=== PATIENT | female | born 1975 | race Two or more races ===

== ENCOUNTER 2024-08-26 15:53 | Inpatient (IN) | payer MEDICAID, OTHER ==
[~2024-08-26] VITALS: Ht 165.1 cm; Wt 68.1 kg
--- NOTE | 2024-08-26 16:10 | ED.PDOC ---
HPI (NEURO) HPI Comments HPI: Poor Historian. 49-year-old female brought in by EMS from PCP's office after a witnessed seizure episode by the physician. Patient had a seizure on the of this month and then also on the of this month and then today as well. She never sought any medical attention for all these recent episodes. She has a history of seizure disorder on phenytoin and phenobarbital. She states compliance with her medications. Her neurologist Dr. Bra. Patient took her last Dilantin dose last night as scheduled. Per EMS, patient had two seizure episodes in route in the ambulance that lasted no more than 30 seconds. Patient was given Versed by EMS prior to arrival. On arrival patient is awake answers questions knows her name follows commands and able to give me all the above details. No recent fall or trauma. Past Medcial History: Seizure disorder Past Surgical History: Denies any REVIEW OF SYSTEMS: CONSTITUTIONAL: Denies acute: fever, diaphoresis, chills, HEAD: Denies acute: headache, photophobia Eyes: Denies acute: Double vision, vision loss, eye pain, eye discharge. EARS: Denies acute: tinnitus, hearing loss, ear discharge, ear pain, THROAT: Denies acute: sore throat, swelling, difficulty swallowing , pain with swallowing, change in voice. NECK: Denies acute: neck pain, neck swelling, stiff neck. HEART: Denies acute : chest pain, palpitations, LUNGS: Denies acute: SOB, wheezing, cough, hemoptysis ABDOMEN: Denies acute: abdominal pain, Nausea, Vomiting, diarrhea, melena , hematemesis, hematochezia SKIN: Denies acute: rash, redness, lesions, itchiness. EXTREMITIES: Denies acute: calf pain, numbness, tingling, weakness, denies pain in extremity. Denies acute: Low back pain. Neuro: Denies acute: focal neurological deficit, motor or sensory focal neurological deficit, , confusion, dizziness, change in mental status, loss of bowel or bladder function, cauda equina like symptoms. : Denies acute: dysuria, hematuria, flank pain, increase in urinary frequency. PSYCH: Denies acute: hallucination, suicidal ideation, homicidal ideation. FEMALE: Denies acute: abnormal vaginal bleeding, foul odor, unusual discharge. PHYSICAL EXAM: General: no acute distress, awake and alert. Head: normocephalic, atraumatic. Neck: supple, trachea is midline, no swelling. Throat: Normal phonation. No obstruction, no erythema, no swelling, no tongue contusion or bleeding or injury. Eyes:, no erythema, no purulent discharge, no proptosis, no icterus. Heart: regular rate, regular rhythm, no significant murmur appreciated. Lungs: no apparent respiratory distress, Able to speak in full sentences. No wheezing, no rhonchi, no crackles. No stridors Clear to auscultation bilaterally. Abdomen: non tender to palpation, non distended, soft, no guarding, no rebound, + bowel sounds. Neuro: Awake, Alert, oriented to name, self, situation, follows commands GCS=15. Speech is normal. Skin: no petechia, no purpura, no cyanosis, non-pale, not jaundice. Lower extremities: --no - Pitting edema no deformity, no focal swelling, no calf TTP. Makes eye contact. moves all four extremities. Face: no apparent facial droop. No CVA tenderness to percussion bilaterally. Ambulating in the ED independently. Ears: Normal appearing TM b/l, Stroke: finger to nose cerebellar testing is intact. No pronator drift. Symmetrical student counselor muscle strength b/l PERRLA, EOM-I Chief Complaint: Seizure Time Seen by MD: 16:00 Reviewed Notes: Nurses Notes, Traffic Observer Notes, Allergies Information Source: Patient, Emergency Med Personnel Was a procedure done? Was a procedure done?: No Differential Diagnosis (SZ) Seizure: Other (SEIZUREDDX include not limited to CVA, cerebellar ischemia/infarct, carotid stenosis, vertebral/carotid artery dissection,, vertebrobasillary insufficiency, Intracranial mass/infection/bleed, encephalopathy, elctrolyte abnormality, thyroid disease, multiple sclerosis, hypoglycemia, drug toxicity, cardiac arrhythmia, sub-theraputic anti-convulsion medications, known seizure disorder, pseudo-seizure.) X-Ray, Labs, Meds, VS Vital Signs Date Time Temp Pulse Resp B/P (MAP) Pulse Ox O2 Delivery O2 Flow Rate FiO2 08/26/24 21:30 85 15 103/77 (86) 98 08/26/24 20:00 86 08/26/24 19:30 98.3 86 15 109/68 (82) 96 98.3 08/26/24 19:30 86 15 96 Room Air* 0 21 08/26/24 19:00 85 15 Room Air* 0 21 08/26/24 18:32 107/69 08/26/24 17:52 81 14 104/68 (80) 93 08/26/24 17:50 82 08/26/24 16:04 98.1 82 20 137/87 (104) 100 Lab Test 08/26/24 19:43 08/26/24 19:27 08/26/24 17:58 08/26/24 16:28 Range/Units Troponin I High Sensitivity < 3 L < 3 L < 3 L </=34 ng/L Urine Color Colorless Yellow Urine Clarity Turbid H Clear Urine pH 6.5 5.0-9.0 Urine Specific [place] 1.007 1.001-1.035 Urine Protein Negative Negative Urine Ketones Negative Negative Urine Blood Negative Negative /uL Urine Nitrite Negative Negative Urine Bilirubin Negative Negative Urine Urobilinogen Normal Negative mg/dL Urine Leukocyte Esterase 3+ Negative /uL Urine RBC 1 0 - 4 /hpf Urine Microscopic WBC 16 H 0-5 /HPF Urine Squamous Epithelial Cells Mod <5 /hpf Urine Bacteria Many H None Seen /hpf Urine Mucus Few None Seen Urine Glucose Normal Normal mg/dL Urine Opiates Screen Neg NEGATIVE Urine Fentanyl Screen Neg NEGATIVE Urine Barbiturates Screen Pos NEGATIVE Urine Phencyclidine Screen Neg NEGATIVE Urine Amphetamines Screen Neg NEGATIVE Urine Benzodiazepines Screen Pos NEGATIVE Urine Cocaine Screen Neg NEGATIVE Urine Cannabinoids Screen Neg NEGATIVE B-Type Natriuretic Peptide 10.75 0-100 pg/mL White Blood Count 5.0 4.4-10.8 10^3/uL Red Blood Count 4.44 4.0-5.20 10^6/uL Hemoglobin 15.0 12.2-16.2 g/dL Hematocrit 43.5 36.0-46.0 % Mean Corpuscular Volume 98.0 80.0-100.0 fL Mean Corpuscular Hemoglobin 33.7 H 28.0-32.0 pg Mean Corpuscular Hemoglobin Concent 34.4 32.0-36.0 g/dL Red Cell Distribution Width 12.4 11.8-14.3 % Platelet Count 216 140-450 10^3/uL Mean Platelet Volume 6.9 6.9-10.8 fL Neutrophils (%) (Auto) 57.9 37.0-80.0 % Lymphocytes (%) (Auto) 32.7 10.0-50.0 % Monocytes (%) (Auto) 6.4 0.0-12.0 % Eosinophils (%) (Auto) 2.0 0.0-7.0 % Basophils (%) (Auto) 1.0 0.0-2.0 % Neutrophils # (Auto) 2.9 1.6-8.6 10 ^3/uL Lymphocytes # (Auto) 1.6 0.4-5.4 10 ^3/uL Monocytes # (Auto) 0.3 0-1.3 10 ^3/uL Eosinophils # (Auto) 0.1 0-0.8 10 ^3/uL Basophils # (Auto) 0 0-0.2 10 ^3/uL Nucleated Red Blood Cells 0.1 % Sodium Level 140 136-145 mmol/L Potassium Level 4.3 3.5-5.1 mmol/L Chloride Level 107 98-107 mmol/L Carbon Dioxide Level 26 20-31 mmol/L Anion Gap 7 5-15 Blood Urea Nitrogen 7 L 9-23 mg/dL Creatinine 0.51 L 0.550-1.02 mg/dL Glomerular Filtration Rate Calc 114 >90 mL/min BUN/Creatinine Ratio 13.7 10.0-20.0 Serum Glucose 77 74-106 mg/dL Lactic Acid Level 1.2 0.4-2.0 mmol/L Calcium Level 9.7 8.7-10.4 mg/dL Magnesium Level 2.0 1.6-2.6 mg/dL Total Bilirubin 0.4 0.2-1.0 mg/dL Aspartate Amino Transferase (AST) 23 13-40 U/L Alanine Aminotransferase (ALT) 28 7-40 U/L Alkaline Phosphatase 93 46-116 U/L Creatine Kinase 42 34-145 U/L Total Protein 7.4 5.7-8.2 g/dL Albumin 4.6 3.2-4.8 g/dL Phenobarbital Level 23.2 15.0-40.0 ug/mL Test 08/26/24 16:00 Range/Units Phenytoin (Dilantin) Level 22.4 *H 10-20 ug/mL Current Medications Medications (Trade) Dose Ordered Sig/Anne-Marie Route Start Time Stop Time Status Last Admin Furosemide (Lasix Injection) 20 mg ONCE ONCE IV 08/26/24 18:00 08/26/24 18:01 DC 08/26/24 18:32 PATIENT: LISA WAGNERACCT: [id number]: [id number] : 1975 LOC: ER ROOM / BED: / AGE / SEX: 49 / F ADM STATUS: REG ER SERVICE 1600 ORDERING PHYSICIAN: ROSS PRADO DO PROCEDURE(s): CXRP - CHEST PORTABLE REASON: ORDER NUMBER(s): [id number], ACCESSION NUMBER(s): [id number] EXAM: XR Chest, 1 View CLINICAL INDICATION: [place] TECHNIQUE: Frontal view of the chest. COMPARISON: None FINDINGS: LUNGS AND PLEURAL SPACES: Pulmonary venous congestion. No consolidation. No pneumothorax. HEART: Unremarkable. No cardiomegaly. MEDIASTINUM: Unremarkable. Normal mediastinal contour. BONES/JOINTS: Unremarkable. No acute fracture. OTHER FINDINGS: . IMPRESSION: Pulmonary venous congestion. ATED BY: KEVYN MCGEE MD DICTATED DATE/TIME: 08/26/241621 SIGNED BY: KEVYN MCGEE MD SIGNED DATE/TIME: 08/26/241621 PATIENT: LISA WAGNER ACCT: [id number] UNIT: [id number] : 1975 LOC: ER ROOM / BED: / AGE / SEX: 49 / F ADM STATUS: REG ER SERVICE 1600 ORDERING PHYSICIAN: ROSS PRADO DO PROCEDURE(s): HWOCT - HEAD WITHOUT CONTRAST REASON: ORDER NUMBER(s): [id number], ACCESSION NUMBER(s): [id number] EXAM: CT HEAD WITHOUT CONTRAST HISTORY: COMPARISON: None TECHNIQUE: Axial images of the head were obtained and reformatted in coronal and sagittal planes. All CT scans at this medical facility are performed using dose modulation techniques as appropriate to a performed exam including the following: Automated exposure control was utilized; adjustment of the MA and/or KV according to patient size; and use of iterative reconstruction technique. CT Dose: CTDI volume is 60 mGy. Dose-length product is 1073 mGy*cm FINDINGS: There is no evidence of acute intracranial hemorrhage, mass, mass effect midline shift. There is no hydrocephalus or extra-axial fluid collection. Lora-white matter differentiation is maintained. The visualized paranasal sinuses and mastoid air cells are clear. The calvarium is intact. IMPRESSION: 1. No acute intracranial process. HS:Y ATED BY: ISAIAS BAR MD DICTATED DATE/TIME: 08/26/241621 SIGNED BY: ISAIAS BAR MD SIGNED DATE/TIME: 08/26/24 162 Time of 1ST Reevaluation: 02:06 Reevaluation 1ST: Improved Patient Education/Counseling: Diagnosis, Treatment Family Education/Counseling: Other Comments Patient presented with the above HPI.---seizure---workup was initiated. patient was found with the above mentioned diagnosis. the following medications were ordered: please refer to order lists of meds and tests obtained by myself Dr. Prado. Patient ED course and VS have been stabilized. Patient has been reassessed in the ED and remained in a stable condition. Pertinent incidental findings were discussed with the patient and/or family. Patient/family voices understanding and is agreeable with plan. Patient has been observed in the ED adequate length of time to insure improvement/stability. Escalation of care considered: Consideration of escalation to observation or admission Patient was ADMITTED to the medicine team for further evaluation and treatment of their presentation. All the reports of any imaging studies that were ordered by myself were reviewed by myself. Departure 1 Departure Time of Disposition: 17:56 Impression: Primary Impression: Seizure Additional Impressions: Subtherapeutic serum dilantin level UTI (urinary tract infection) Disposition: ADMITTED INPATIENT Admit to: Tele Condition: Guarded Discharged With: Self Critical Care Note Critical Care Time?: Yes (35 min-critical care time only) I personally scribed for ROSS PRADO DO ([email or web address]) on 08/26/24 at 18:29. Electronically submitted by Dangelo Wells ([email or web address]). ROSS PRADO DO Aug 26, 2024 16:10
--- NOTE | 2024-08-26 16:24 | DVH ---
EXAM: XR Chest, 1 View CLINICAL INDICATION: sz TECHNIQUE: Frontal view of the chest. COMPARISON: None FINDINGS: LUNGS AND PLEURAL SPACES: Pulmonary venous congestion. No consolidation. No pneumothorax. HEART: Unremarkable. No cardiomegaly. MEDIASTINUM: Unremarkable. Normal mediastinal contour. BONES/JOINTS: Unremarkable. No acute fracture. OTHER FINDINGS: . IMPRESSION: Pulmonary venous congestion.
--- NOTE | 2024-08-26 16:24 | DVH ---
EXAM: CT HEAD WITHOUT CONTRAST HISTORY: sz COMPARISON: None TECHNIQUE: Axial images of the head were obtained and reformatted in coronal and sagittal planes. All CT scans at this medical facility are performed using dose modulation techniques as appropriate t o a performed exam including the following: Automated exposure control was utilized; adjustment of th e MA and/or KV according to patient size; and use of iterative reconstruction technique. CT Dose: CTDI volume is 60 mGy. Dose-length product is 1073 mGy*cm FINDINGS: There is no evidence of acute intracranial hemorrhage, mass, mass effect midline shift. There is no h ydrocephalus or extra-axial fluid collection. Lora-white matter differentiation is maintained. The visualized paranasal sinuses and mastoid air cells are clear. The calvarium is intact. IMPRESSION: 1. No acute intracranial process. HS:Y
[2024-08-26 17:01] LABS: Basophils # (auto) 0 10 ^3/uL (0-0.2); Eosinophils # (auto) 0.1 10 ^3/uL (0-0.8); Hematocrit 43.5 % (36.0-46.0); Lymphocytes # (auto) 1.6 10 ^3/uL (0.4-5.4); Lymphocytes % (auto) 32.7 % (10.0-50.0); Mean Corpuscular Hemoglobin 33.7 pg (28.0-32.0); Mean Corpuscular Hgb Conc. 34.4 g/dL (32.0-36.0); Monocytes # (auto) 0.3 10 ^3/uL (0-1.3); Monocytes % (auto) 6.4 % (0.0-12.0); Neutrophils # (auto) 2.9 10 ^3/uL (1.6-8.6); Neutrophils % (auto) 57.9 % (37.0-80.0); Nucleated Red Blood Cells % 0.1 %; Platelet Count (auto) 216 10^3/uL (140-450); Red Blood Cells 4.44 10^6/uL (4.0-5.20); Red Cell Distribution Width 12.4 % (11.8-14.3)
[2024-08-26 17:18] LABS: Alanine Aminotransferase 28 U/L (7-40); Albumin 4.6 g/dL (3.2-4.8); Alkaline Phosphatase 93 U/L (46-116); Anion Gap 7 (5-15); Aspartate Aminotransferase 23 U/L (13-40); BUN/Creatinine Ratio 13.7 (10.0-20.0); Calcium 9.7 mg/dL (8.7-10.4); Carbon Dioxide 26 mmol/L (20-31); Chloride 107 mmol/L (98-107); Creatine Kinase IFCC 42 U/L (34-145); Glucose 77 mg/dL (74-106); Potassium 4.3 mmol/L (3.5-5.1); Sodium 140 mmol/L (136-145)
[2024-08-26 17:19] LABS: Bilirubin, Total 0.4 mg/dL (0.2-1.0); Total Protein 7.4 g/dL (5.7-8.2)
[2024-08-26 17:23] LABS: Blood Urea Nitrogen 7 mg/dL (9-23)
[2024-08-26] MEDS: FUROSEMIDE 20 MG/2 ML VIAL IV ONE (18:32)
[2024-08-26 19:00] VITALS: PULSE 85; RESP 15
[2024-08-26 19:30] VITALS: PULSE 86; RESP 15; O2SAT 96
[2024-08-26 19:56] LABS: Urine Bacteria MANY /hpf (None Seen); Urine Blood Negative /uL (Negative); Urine Clarity Turbid (Clear); Urine Color Colorless (Yellow); Urine Mucus FEW (None Seen); Urine Protein, UAD Negative (Negative); Urine Specific Gravity 1.007 (1.001-1.035); Urine Squamous Epithelial Cell MOD /hpf (<5); Urine Urobilinogen Normal (Negative); Urine WBC 16 /HPF (0-5); Urine pH 6.5 (5.0-9.0)
[2024-08-26] MEDS ORDERED: LORazepam 2MG/ML-1ML VIAL IV PRN (22:45)
--- NOTE | 2024-08-26 22:45 | DVHHPRES ---
History of Present Illness Resident Creating Document: FABI GOMEZ RESIDENT History of Present Illness Patient is a 49-year-old female with past medical history of a seizure disorder diagnosed in childhood, who was sent from her PCP's office due to having multiple seizures. According to the patient, she went to her PCP's office earlier in the day when she had a seizure at the doctor's office, who subsequently called the ambulance. On route in the ambulance, patient had another 2 seizures. Patient notes that she has had 2 seizures earlier this month as well. At the time of my assessment, patient was A&O x4 with some headache. Patient notes being compliant with her medication phenobarbital and phenytoin. Per patient, she completed EEG in May 2024 which according to her was largely unremarkable. Patient notes that for the past 3-4 days she has been having increasing insomnia and difficulty falling asleep at night. On review of systems patient is complaining of chills and urinary frequency. UA shows 3+ leukocyte esterase and many bacteria. Urine culture was ordered and pool walters was started on IV ceftriaxone. Past Medical History Seizure disorder Past Surgical History Lumpectomy in 2010 Smoke: No ALCOHOL: none Drugs: None Lives: with Family Review of Systems Constitutional: Yes: Chills; No: Fever, Sweats, Weakness, Malaise, Other Eyes: No: Pain, Vision change, Conjunctivae inflammation, Eyelid inflammation, Other, Redness ENT: No: Ear pain, Ear discharge, Nose pain, Nose discharge, Nose congestion, Mouth pain, Mouth swelling, Throat pain, Throat swelling, Other Respiratory: No: Cough, Dry, Shortness of breath, SOB with excertion, Wheezing, Hemoptysis, Pleuritic Pain, Sputum, Wheezing, Other Cardiovascular: No: Chest Pain, Palpitations, Orthopnea, Paroxysmal Noc. Dyspnea, Edema, Lt Headedness, Other Gastrointestinal: No: Nausea, Vomiting, Abdominal Pain, Diarrhea, Constipation, Melena, Hematochezia, Other Genitourinary: No Dysuria; Frequency; No Incontinence, No Hematuria, No Retention, No Other Musculoskeletal: No: other, neck pain, shoulder pain, arm pain, back pain, hand pain, leg pain, foot pain Skin: No: Rash, Lesions, Jaundice, Bruising, Other Neurological: No: Weakness, Numbness, Incoordination, Change in speech, Confusion, Seizures, Other Allergies: Coded Allergies: NO KNOWN ALLERGIES (Unverified , 08/26/24) Medications Current Medications Medications Dose Ordered Sig/Anne-Marie Route Start Time Stop Time Status Last Admin Dose Admin Lorazepam 1 mg Q5MINP PRN IV 08/26/24 22:45 Phenobarbital 97.2 mg DAILY PO 08/27/24 10:00 Ceftriaxone Sodium 50 ml @ 100 mls/hr DAILY@09 IV 08/27/24 09:00 Exam Vital Signs Vital Signs Date Time Temp Pulse Resp B/P (MAP) Pulse Ox O2 Delivery O2 Flow Rate FiO2 08/26/24 21:30 85 15 103/77 (86) 98 08/26/24 19:30 98.3 98.3 08/26/24 19:30 Room Air* 0 21 General Appearance: Alert, Oriented X3, Cooperative, No acute distress HEENT: Atraumatic, PERRLA, EOMI, Mucous membr. moist/pink Respiratory: Clear to auscultation, Normal air movement Cardiovascular: Regular rate, Normal S1, Normal S2 Abdominal: Normal bowel sounds, Soft, No tenderness Extremities: No edema, Normal pulses Skin: No rashes, No significant lesion Neuro: Normal speech, Sensation intact Psych/Mental Status: Mental status NL, Mood NL Labs/Xrays Labs Test 08/26/24 19:43 08/26/24 19:27 08/26/24 17:58 08/26/24 16:28 Range/Units Troponin I High Sensitivity < 3 L </=34 ng/L Urine Color Colorless Yellow Urine Clarity Turbid H Clear Urine pH 6.5 5.0-9.0 Urine Specific [place] 1.007 1.001-1.035 Urine Protein Negative Negative Urine Ketones Negative Negative Urine Blood Negative Negative /uL Urine Nitrite Negative Negative Urine Bilirubin Negative Negative Urine Urobilinogen Normal Negative mg/dL Urine Leukocyte Esterase 3+ Negative /uL Urine RBC 1 0 - 4 /hpf Urine Microscopic WBC 16 H 0-5 /HPF Urine Squamous Epithelial Cells Mod <5 /hpf Urine Bacteria Many H None Seen /hpf Urine Mucus Few None Seen Urine Glucose Normal Normal mg/dL B-Type Natriuretic Peptide 10.75 0-100 pg/mL White Blood Count 5.0 4.4-10.8 10^3/uL Red Blood Count 4.44 4.0-5.20 10^6/uL Hemoglobin 15.0 12.2-16.2 g/dL Hematocrit 43.5 36.0-46.0 % Mean Corpuscular Volume 98.0 80.0-100.0 fL Mean Corpuscular Hemoglobin 33.7 H 28.0-32.0 pg Mean Corpuscular Hemoglobin Concent 34.4 32.0-36.0 g/dL Red Cell Distribution Width 12.4 11.8-14.3 % Platelet Count 216 140-450 10^3/uL Mean Platelet Volume 6.9 6.9-10.8 fL Neutrophils (%) (Auto) 57.9 37.0-80.0 % Lymphocytes (%) (Auto) 32.7 10.0-50.0 % Monocytes (%) (Auto) 6.4 0.0-12.0 % Eosinophils (%) (Auto) 2.0 0.0-7.0 % Basophils (%) (Auto) 1.0 0.0-2.0 % Neutrophils # (Auto) 2.9 1.6-8.6 10 ^3/uL Lymphocytes # (Auto) 1.6 0.4-5.4 10 ^3/uL Monocytes # (Auto) 0.3 0-1.3 10 ^3/uL Eosinophils # (Auto) 0.1 0-0.8 10 ^3/uL Basophils # (Auto) 0 0-0.2 10 ^3/uL Nucleated Red Blood Cells 0.1 % Sodium Level 140 136-145 mmol/L Potassium Level 4.3 3.5-5.1 mmol/L Chloride Level 107 98-107 mmol/L Carbon Dioxide Level 26 20-31 mmol/L Anion Gap 7 5-15 Blood Urea Nitrogen 7 L 9-23 mg/dL Creatinine 0.51 L 0.550-1.02 mg/dL Glomerular Filtration Rate Calc 114 >90 mL/min BUN/Creatinine Ratio 13.7 10.0-20.0 Serum Glucose 77 74-106 mg/dL Lactic Acid Level 1.2 0.4-2.0 mmol/L Calcium Level 9.7 8.7-10.4 mg/dL Magnesium Level 2.0 1.6-2.6 mg/dL Total Bilirubin 0.4 0.2-1.0 mg/dL Aspartate Amino Transferase (AST) 23 13-40 U/L Alanine Aminotransferase (ALT) 28 7-40 U/L Alkaline Phosphatase 93 46-116 U/L Creatine Kinase 42 34-145 U/L Total Protein 7.4 5.7-8.2 g/dL Albumin 4.6 3.2-4.8 g/dL Phenobarbital Level 23.2 15.0-40.0 ug/mL Test 08/26/24 16:00 Range/Units Phenytoin (Dilantin) Level 22.4 *H 10-20 ug/mL Assessment/Plan Assessment/Plan Breakthrough seizure possibly due to infection? Possible aspiration pneumonitis - CXR: Pulmonary venous congestion - head CT: No acute intracranial process - resumed home medication phenytoin 100 mg b.i.d. - resumed home medication phenobarbital 97.2 mg p.o. daily - IV Ativan Q 5 minutes as needed for seizures - IV Keppra 1000 mg once - neurology consulted Acute complicated UTI - IV ceftriaxone - ordered urine culture Goals of care: Full code, discussed for >16 minutes on 08/26/24 Plan discussed with patient Plan discussed with Dr. Peralta Plan discussed with: Patient, Other (RN) My Orders Orders - FABI GOMEZ RESIDENT Procedure Category Date Status Time Admit ADMIT 08/26/24 Transmitted 21:52 Code Status CODE 08/26/24 Transmitted 21:52 Vital Signs [facility] 08/26/24 In Process 21:52 Review Orders With [facility] 08/26/24 In Process Adm. 21:52 Notify Md Of Changes [facility] 08/26/24 In Process From [facility] 21:52 Advance Directive [facility] 08/26/24 In Process 21:52 Patient Condition ORDERS 08/26/24 Transmitted 21:52 Allergies [facility] 08/26/24 In Process 21:52 Notify Md Of Changes [facility] 08/26/24 In Process From Base 21:52 Seizure Precautions ED NURSING 08/26/24 Transmitted Strict Aspiration [facility] 08/26/24 In Process Precautions 21:52 Covid19 Antigen [facility] 08/26/24 Logged Rapid Influenza A&B LAB 08/26/24 Logged 22:36 Urine Bacterial NATALIA 08/26/24 Logged Culture 22:36 * Neurology Consult CONS 08/26/24 Transmitted 22:36 Drug Screen LAB 08/26/24 Logged 22:36 Lorazepam 2mg/Ml Inj PHA 08/26/24 In Process (Ativan Inj) 22:45 Phenobarbital Tablet PHA 08/27/24 In Process 10:00 Ceftriaxone 1gm/50ml PHA 08/27/24 In Process D5w (Rocephin) 09:00 Ceftriaxone 1gm/50ml PHA 08/26/24 In Process D5w (Rocephin) 22:45 Regular Diet DIET 08/27/24 Transmitted Breakfast Date of Service: Aug 26, 2024 Billing Provider: DARRYL LAUREN MD Common Visit Codes: 22656-[id number] INP/OBS CARE (HIGH) FABI GOMEZ RESIDENT Aug 26, 2024 22:45 DARRYL LAUREN MD Sep 02, 2024 15:56
[2024-08-26] MEDS: cefTRIAXone 1GM/50ML D5W 50 ML IV ONE (23:13)
[2024-08-26 23:24] LABS: Barbiturate Scree,Urine Pos (NEGATIVE)
[2024-08-26 23:27] LABS: Amphetamine Screen, Urine Neg (NEGATIVE); Benzodiazephine Screen, Urine Pos (NEGATIVE); Cannabinoid Screen, Urine Neg (NEGATIVE); Cocaine Screen, Urine Neg (NEGATIVE); Opiate Scree,Urine Neg (NEGATIVE); Phencyclidine Screen, Urine Neg (NEGATIVE)
[2024-08-27] MEDS: levETIRAcetam 1000 mg/100ml 100 ML IV ONE (00:27)
[2024-08-27] MEDS: IBUPROFEN 400 MG TAB PO PRN (01:40)
[2024-08-27 03:05] LABS: COVID19 ANTIGEN SOFIA FIA NEGATIVE (NEGATIVE); Rapid Influenza A Negative (Negative); Rapid Influenza B Negative (Negative)
[2024-08-27 05:19] LABS: Basophils # (auto) 0.1 10 ^3/uL (0-0.2); Basophils % (auto) 1.1 % (0.0-2.0); Eosinophils # (auto) 0.2 10 ^3/uL (0-0.8); Eosinophils % (auto) 3.2 % (0.0-7.0); Hematocrit 42.3 % (36.0-46.0); Hemoglobin 14.3 g/dL (12.2-16.2); Lymphocytes # (auto) 2.5 10 ^3/uL (0.4-5.4); Lymphocytes % (auto) 37.2 % (10.0-50.0); Mean Corpuscular Hemoglobin 33.6 pg (28.0-32.0); Mean Corpuscular Hgb Conc. 33.9 g/dL (32.0-36.0); Mean Corpuscular Volume 99.1 fL (80.0-100.0); Monocytes # (auto) 0.6 10 ^3/uL (0-1.3); Monocytes % (auto) 9.3 % (0.0-12.0); Neutrophils # (auto) 3.3 10 ^3/uL (1.6-8.6); Neutrophils % (auto) 49.2 % (37.0-80.0); Nucleated Red Blood Cells % 0.1 %; Platelet Count (auto) 203 10^3/uL (140-450); Red Blood Cells 4.27 10^6/uL (4.0-5.20); Red Cell Distribution Width 12.6 % (11.8-14.3); White Blood Cell 6.7 10^3/uL (4.4-10.8)
[2024-08-27 05:27] LABS: Potassium 3.6 mmol/L (3.5-5.1); Sodium 140 mmol/L (136-145)
[2024-08-27 05:28] LABS: Anion Gap 8 (5-15); Calcium 9.5 mg/dL (8.7-10.4); Carbon Dioxide 24 mmol/L (20-31)
[2024-08-27 05:33] LABS: BUN/Creatinine Ratio 15.9 (10.0-20.0); Blood Urea Nitrogen 10 mg/dL (9-23); Glucose 83 mg/dL (74-106)
[2024-08-27 05:36] LABS: Chloride 108 mmol/L (98-107)
[2024-08-27] MEDS: cefTRIAXone 1GM/50ML D5W 50 ML IV SCH (09:00)
--- NOTE | 2024-08-27 09:13 | DVHINCON2 ---
Date of service: Aug 27, [address] Pittman Reason for Consultation Breakthrough seizure History of Present Illness Ms. Donovan is a 49 years old right-handed female with a history of seizure disorder, the patient was brought to the [facility] ER on 08/26/2024 with a chief company of seizure activity. At this time, she was alert, fully oriented, she provided the following history She does not remember, but she was told to have three seizures yesterday, one in her doctor office, two in the ambulance, she remembers waking up between the seizures She has a seizure disorder since age of [age], with unknown etiology, she was company amnesia about all her seizures, but she was said to have shaking all over body, loss of consciousness, and she has had biting during the seizure attacks. She sees Dr. Bar, a local neurologist, she was on phenytoin 300 mg HS, phenobarbital 100 mg daily, but she keeps have seizure, about three days monthly. She was remember using Keppra previously, but not other seizure medications She remembers seeing a specialist for her seizure in the [facility], but she does not remember the details She reports a good compliance to her treatment She does not drive Dilantin, 08/26/2024: 22.4 Phenobarbital, 08/26/2024: 23.2 UDS, 08/26/2024: Benzodiazepine UDS, 08/26/2024: WBC: 15, urine leukocyte esterase: 3+ CBC, 08/27/2024: Unremarkable CMP company : Unremarkable CT head, 08/26/2024: No acute intracranial process. Past Medical History Seizure disorder Past Surgical History Lumpectomy Family History No major medical problem Social History She denies a history of alcohol smoke, drug/alcohol abuse Allergies: Coded Allergies: NO KNOWN ALLERGIES (Unverified , 08/26/24) Current Medications Current Medications Medications (Trade) Dose Ordered Sig/Anne-Marie Route PRN Reason Start Time Stop Time Status Last Admin Lorazepam (Ativan Inj) 1 mg Q5MINP PRN IV SEIZURES 08/26/24 22:45 Phenobarbital 97.2 mg DAILY PO 08/27/24 10:00 Ceftriaxone Sodium 50 ml @ 100 mls/hr DAILY@09 IV 08/27/24 09:00 Phenytoin Sodium (Dilantin Capsule) 100 mg Q12HR PO 08/27/24 10:00 Sertraline HCl (Zoloft) 25 mg DAILY PO 08/27/24 10:00 Ibuprofen (Motrin Tablet) 500 mg STAT PRN PO MILD PAIN (1-3 PAIN SCALE) 08/27/24 01:15 08/27/24 01:40 Review of Systems As above, the other systems are negative Vital Signs Vital Signs Date Time Temp Pulse Resp B/P (MAP) Pulse Ox O2 Delivery O2 Flow Rate FiO2 08/27/24 08:00 94 08/27/24 06:01 15 92/61 (71) 94 08/27/24 02:40 98.3 08/26/24 19:30 Room Air* 0 21 Physical Exam GENERAL EXAM: General: the patient is well developed and nourished. No acute distress. HEENT: Normocephalic, neck is supple, no carotid bruits. No mass. RESPIRATORY: Normal respiratory effort with symmetrical lung expansion. Lungs clear to auscultation. CARDIOVASCULAR: Regular rate and rhythm with no murmurs. S1, S2. ABDOMEN: Soft, nontender, normal bowel sound NEUROLOGICAL: MENTAL STATUS: Awake and alert. Oriented to person, place, time and general circumstances. Able to give personal history SPEECH, LANGUAGE, HIGHER CORTICAL FUNCTION: no aphasia or dysathria. CRANIAL NERVES: #2: Intact visual ruby to confrontation. The optic discs were sharp #3,4,6: Pupils are equal, round and reactive. EOMs full and conjugate. No nystagmus. #5: Facial sensation intact in all three divisions bilaterally. Mandibular strength intact. #7: Facial muscles symmetrical and strength intact. #8: Hearing grossly normal to voice. #9,10: Uvula and soft palate rise in the midline. Swallow and voice are normal. #11: Trapezius and sternomastoid strength intact bilaterally. #12: Tongue midline. No fasciculations or atrophy. SENSATION: Sensation to touch and pinprick is normal. MOTOR: Normal tone in the upper and lower extremity. Normal muscle bulk. No fasciculations. No abnormal movements or posturing. Muscle strength of the major groups in the upper extremities is 5/5. Muscle strength of the major groups in the lower extremities is 5/5. REFLEXES: Deep tendon reflexes are symmetrical. No pathological reflexes. CEREBELLAR/COORDINATION: Finger to nose is normal bilaterally. GAIT/STATION: deferred Labs/Diagnostic Data Labs Test 08/27/24 04:28 08/27/24 02:32 08/26/24 19:43 08/26/24 19:27 Range/Units White Blood Count 6.7 # 4.4-10.8 10^3/uL Red Blood Count 4.27 4.0-5.20 10^6/uL Hemoglobin 14.3 12.2-16.2 g/dL Hematocrit 42.3 36.0-46.0 % Mean Corpuscular Volume 99.1 80.0-100.0 fL Mean Corpuscular Hemoglobin 33.6 H 28.0-32.0 pg Mean Corpuscular Hemoglobin Concent 33.9 32.0-36.0 g/dL Red Cell Distribution Width 12.6 11.8-14.3 % Platelet Count 203 140-450 10^3/uL Mean Platelet Volume 6.8 L 6.9-10.8 fL Neutrophils (%) (Auto) 49.2 37.0-80.0 % Lymphocytes (%) (Auto) 37.2 10.0-50.0 % Monocytes (%) (Auto) 9.3 0.0-12.0 % Eosinophils (%) (Auto) 3.2 0.0-7.0 % Basophils (%) (Auto) 1.1 0.0-2.0 % Neutrophils # (Auto) 3.3 1.6-8.6 10 ^3/uL Lymphocytes # (Auto) 2.5 0.4-5.4 10 ^3/uL Monocytes # (Auto) 0.6 0-1.3 10 ^3/uL Eosinophils # (Auto) 0.2 0-0.8 10 ^3/uL Basophils # (Auto) 0.1 0-0.2 10 ^3/uL Nucleated Red Blood Cells 0.1 % Sodium Level 140 136-145 mmol/L Potassium Level 3.6 3.5-5.1 mmol/L Chloride Level 108 H 98-107 mmol/L Carbon Dioxide Level 24 20-31 mmol/L Anion Gap 8 5-15 Blood Urea Nitrogen 10 9-23 mg/dL Creatinine 0.63 0.550-1.02 mg/dL Glomerular Filtration Rate Calc 108 >90 mL/min BUN/Creatinine Ratio 15.9 10.0-20.0 Serum Glucose 83 74-106 mg/dL Calcium Level 9.5 8.7-10.4 mg/dL Influenza Type A Antigen Negative Negative Influenza Type B Antigen Negative Negative SARS-CoV-2 Antigen (Rapid) Negative NEGATIVE Troponin I High Sensitivity < 3 L </=34 ng/L Urine Color Colorless Yellow Urine Clarity Turbid H Clear Urine pH 6.5 5.0-9.0 Urine Specific [place] 1.007 1.001-1.035 Urine Protein Negative Negative Urine Ketones Negative Negative Urine Blood Negative Negative /uL Urine Nitrite Negative Negative Urine Bilirubin Negative Negative Urine Urobilinogen Normal Negative mg/dL Urine Leukocyte Esterase 3+ Negative /uL Urine RBC 1 0 - 4 /hpf Urine Microscopic WBC 16 H 0-5 /HPF Urine Squamous Epithelial Cells Mod <5 /hpf Urine Bacteria Many H None Seen /hpf Urine Mucus Few None Seen Urine Glucose Normal Normal mg/dL Urine Opiates Screen Neg NEGATIVE Urine Fentanyl Screen Neg NEGATIVE Urine Barbiturates Screen Pos NEGATIVE Urine Phencyclidine Screen Neg NEGATIVE Urine Amphetamines Screen Neg NEGATIVE Urine Benzodiazepines Screen Pos NEGATIVE Urine Cocaine Screen Neg NEGATIVE Urine Cannabinoids Screen Neg NEGATIVE Test 08/26/24 17:58 08/26/24 16:28 08/26/24 16:00 Range/Units B-Type Natriuretic Peptide 10.75 0-100 pg/mL Lactic Acid Level 1.2 0.4-2.0 mmol/L Magnesium Level 2.0 1.6-2.6 mg/dL Total Bilirubin 0.4 0.2-1.0 mg/dL Aspartate Amino Transferase (AST) 23 13-40 U/L Alanine Aminotransferase (ALT) 28 7-40 U/L Alkaline Phosphatase 93 46-116 U/L Creatine Kinase 42 34-145 U/L Total Protein 7.4 5.7-8.2 g/dL Albumin 4.6 3.2-4.8 g/dL Phenobarbital Level 23.2 15.0-40.0 ug/mL Phenytoin (Dilantin) Level 22.4 *H 10-20 ug/mL Assessment Status epileptics Grand mal seizure Plan/Recommendation Monitoring Supportive treatment Telemetry Dilantin 300 mg HS Phenobarbital 100 mg q.d. Ativan for seizure breakthrough Follow-up her neurologist for ongoing care Progress: Poor This medical document was created using an electronic medical record system with [employer] dictation system. Although this document has been carefully reviewed, there may still be some phonetic and typographical errors. These areas are purely typographical due to imperfections of the software programs, and do not reflect any compromise in the patient's medical care. Plan discussed with: Patient, Other YULISSA ALEXANDER MD Aug 27, 2024 09:13
[2024-08-27] MEDS: PHENYTOIN SODIUM 100 MG CAP PO SCH (09:45)
[2024-08-27] MEDS: SERTRALINE HCL 50 MG TAB PO SCH (10:00)
[2024-08-27] MEDS ORDERED: PHENobarbital 32.4 MG TAB PO SCH ×3 (10:00→22:00)
[2024-08-27] MEDS ORDERED: PHENYTOIN SODIUM 100 MG CAP PO SCH (10:00)
[2024-08-27 12:35] VITALS: PULSE 96; RESP 16
[2024-08-27 13:02] VITALS: BP 107/65; PULSE 85; RESP 19; TEMP 97.9; O2SAT 99
[2024-08-27 16:31] VITALS: BP 106/63; PULSE 81; RESP 18; TEMP 98.1; O2SAT 95
[2024-08-27] MEDS ORDERED: CEPH250C PO (18:25)
[2024-08-27 19:11] VITALS: BP 107/69; PULSE 81; RESP 18; TEMP 98.1; O2SAT 95
--- NOTE | 2024-08-27 19:22 | DVHDSRES ---
Discharge Summary Date of Admission Resident Creating Document: ALLEGRA TELLES RESIDENT Aug 26, 2024 at 21:52 Date of Discharge: Aug 27, 2024 Admitting Diagnosis Breakthrough seizure possibly due to infection? Possible aspiration pneumonitis Acute complicated UTI Wounds: none Labs/Diagnostic Data: Laboratory Results Test 08/27/24 04:28 08/27/24 02:32 08/26/24 19:43 08/26/24 19:27 White Blood Count 6.7 10^3/uL (4.4-10.8) Red Blood Count 4.27 10^6/uL (4.0-5.20) Hemoglobin 14.3 g/dL (12.2-16.2) Hematocrit 42.3 % (36.0-46.0) Mean Corpuscular Volume 99.1 fL (80.0-100.0) Mean Corpuscular Hemoglobin 33.6 pg (28.0-32.0) Mean Corpuscular Hemoglobin Concent 33.9 g/dL (32.0-36.0) Red Cell Distribution Width 12.6 % (11.8-14.3) Platelet Count 203 10^3/uL (140-450) Mean Platelet Volume 6.8 fL (6.9-10.8) Neutrophils (%) (Auto) 49.2 % (37.0-80.0) Lymphocytes (%) (Auto) 37.2 % (10.0-50.0) Monocytes (%) (Auto) 9.3 % (0.0-12.0) Eosinophils (%) (Auto) 3.2 % (0.0-7.0) Basophils (%) (Auto) 1.1 % (0.0-2.0) Neutrophils # (Auto) 3.3 10 ^3/uL (1.6-8.6) Lymphocytes # (Auto) 2.5 10 ^3/uL (0.4-5.4) Monocytes # (Auto) 0.6 10 ^3/uL (0-1.3) Eosinophils # (Auto) 0.2 10 ^3/uL (0-0.8) Basophils # (Auto) 0.1 10 ^3/uL (0-0.2) Nucleated Red Blood Cells 0.1 % Sodium Level 140 mmol/L (136-145) Potassium Level 3.6 mmol/L (3.5-5.1) Chloride Level 108 mmol/L (98-107) Carbon Dioxide Level 24 mmol/L (20-31) Anion Gap 8 (5-15) Blood Urea Nitrogen 10 mg/dL (9-23) Creatinine 0.63 mg/dL (0.550-1.02) Glomerular Filtration Rate Calc 108 mL/min (>90) BUN/Creatinine Ratio 15.9 (10.0-20.0) Serum Glucose 83 mg/dL (74-106) Calcium Level 9.5 mg/dL (8.7-10.4) Influenza Type A Antigen Negative (Negative) Influenza Type B Antigen Negative (Negative) SARS-CoV-2 Antigen (Rapid) Negative (NEGATIVE) Troponin I High Sensitivity < 3 ng/L (</=34) Urine Color Colorless (Yellow) Urine Clarity Turbid (Clear) Urine pH 6.5 (5.0-9.0) Urine Specific [place] 1.007 (1.001-1.035) Urine Protein Negative (Negative) Urine Ketones Negative (Negative) Urine Blood Negative /uL (Negative) Urine Nitrite Negative (Negative) Urine Bilirubin Negative (Negative) Urine Urobilinogen Normal mg/dL (Negative) Urine Leukocyte Esterase 3+ /uL (Negative) Urine RBC 1 /hpf (0 - 4) Urine Microscopic WBC 16 /HPF (0-5) Urine Squamous Epithelial Cells Mod /hpf (<5) Urine Bacteria Many /hpf (None Seen) Urine Mucus Few (None Seen) Urine Glucose Normal mg/dL (Normal) Urine Opiates Screen Neg (NEGATIVE) Urine Fentanyl Screen Neg (NEGATIVE) Urine Barbiturates Screen Pos (NEGATIVE) Urine Phencyclidine Screen Neg (NEGATIVE) Urine Amphetamines Screen Neg (NEGATIVE) Urine Benzodiazepines Screen Pos (NEGATIVE) Urine Cocaine Screen Neg (NEGATIVE) Urine Cannabinoids Screen Neg (NEGATIVE) Test 08/26/24 17:58 08/26/24 16:28 08/26/24 16:00 B-Type Natriuretic Peptide 10.75 pg/mL (0-100) Lactic Acid Level 1.2 mmol/L (0.4-2.0) Magnesium Level 2.0 mg/dL (1.6-2.6) Total Bilirubin 0.4 mg/dL (0.2-1.0) Aspartate Amino Transferase (AST) 23 U/L (13-40) Alanine Aminotransferase (ALT) 28 U/L (7-40) Alkaline Phosphatase 93 U/L (46-116) Creatine Kinase 42 U/L (34-145) Total Protein 7.4 g/dL (5.7-8.2) Albumin 4.6 g/dL (3.2-4.8) Phenobarbital Level 23.2 ug/mL (15.0-40.0) Phenytoin (Dilantin) Level 22.4 ug/mL (10-20) Other Laboratory Tests 08/27/24 04:28 Brief Hx & Hospital Course: HPI Patient is a 49-year-old female with past medical history of a seizure disorder diagnosed in childhood, who was sent from her PCP's office due to having multiple seizures. According to the patient, she went to her PCP's office earlier in the day when she had a seizure at the doctor's office, who subsequently called the ambulance. On route in the ambulance, patient had another 2 seizures. Patient notes that she has had 2 seizures earlier this month as well. At the time of my assessment, patient was A&O x4 with some headache. Patient notes being compliant with her medication phenobarbital and phenytoin. Per patient, she completed EEG in May 2024 which according to her was largely unremarkable. Patient notes that for the past 3-4 days she has been having increasing insomnia and difficulty falling asleep at night. On review of systems patient is complaining of chills and urinary frequency. UA shows 3+ leukocyte esterase and many bacteria. Past Medical History: Seizure disorder Past Surgical History: Lumpectomy in 2010 Brief hospital course Patient was admitted to the hospital with a chief complaint of seizure disorder. Patient was given Keppra 1000 mg and was continued on home medication of phenytoin and phenobarbital. Patient was noted to have urine tract infection likely acute cystitis and was treated with IV antibiotics, 2 doses of ceftriaxone IV were given. Neurology with Dr. Sen evaluated the patient and recommended to continue home medication and follow up in the outpatient primary neurologist. Patient was stable and denied any new complaints and did not experience any seizure while in the hospital. Patient was discharged in stable condition to home and was sent with Keflex 500 mg b.i.d. for 7 days for UTI and advised to continue on the home medications. Patient was advised to follow up with the primary neurologist in 1 week. Consults/Reason for consult Neurology consultation for seizures Operations or Procedures CT head without contrast FINDINGS: There is no evidence of acute intracranial hemorrhage, mass, mass effect midline shift. There is no hydrocephalus or extra-axial fluid collection. Lora-white matter differentiation is maintained. The visualized paranasal sinuses and mastoid air cells are clear. The calvarium is intact. IMPRESSION: No acute intracranial process. Condition at Discharge: Good Final Diagnosis/Problems List Breakthrough seizure likely d/t ?lack of sleep, UTI H/o seizure disorder UTI likely uncomplicated acute cystitis Discharge Disposition: Home Discharge Instruct/Medications Diet: Regular Activity: No Restrictions, As Tolerated Follow Up/Referral: Follow up with the PCP and primary neurologist within one week Medications: as per EMR continue home medications Discharge Statement: "Patient was advised to return to the ER or call 911 if any headaches, dizziness, shortness of breath, chest pain, abdominal pain, bleeding, fevers, or worsening of medical condition. Patient was counseled about treatment plan, medications, possible side effects, patientverbalized understanding. All questions were answered to the best of my ability. This discharge took greater then 30 minutes in planning, reviewing documentation, counseling the patient, and discussing with other team members." ASSESSMENT ASSESSMENT Assessment Breakthrough seizure likely d/t ?lack of sleep, UTI H/o seizure disorder UTI likely uncomplicated acute cystitis Date of Service: Aug 27, 2024 Billing Provider: TILA NAVARRO MD Common Visit Codes: 40706-NXD/OBS DISCH DAY >30min ALLEGRA TELLES RESIDENT Aug 27, 2024 19:22 TILA NAVARRO MD Aug 31, 2024 08:55
[2024-08-27] MEDS ORDERED: PHENobarbital 20 MG/5 ML UD PO SCH (22:00)
== END 2024-08-27 20:00 | disposition home or self-care (01) | DRG 53 ==
LOC: EDBD 15:53 → ER 15:53 → TELE 21:52 → TELE-EAST 08-27 12:13
PROVIDERS: ATTEND Emergency Medicine
DX: G40.401 Other generalized epilepsy and epileptic syndromes, not intractable, with status epilepticus (principal); N30.00 Acute cystitis without hematuria; Z20.822 Contact with and (suspected) exposure to COVID-19; Z79.899 Other long term (current) drug therapy
CPT/HCPCS: 36415; 70450; 71045; 80048; 80053; 80184; 80185; 80307; 81001; 82550; 83605; 83735; 83880; 84484; 85025; 87086; 87426; 87804; 96374; 99291; G0378